=== PATIENT | female | born 1955 | race Caucasian/White ===

== ENCOUNTER → 2022-08-06 07:53 | Outpatient (CLI) | payer OTHER, SELFPAY ==
--- NOTE | 2022-08-06 | DI.US.S_ITS ---
PROCEDURE: US ABDOMEN LIMITED INDICATIONS: Right upper quadrant pain TECHNIQUE: Real-time focused scanning was performed of the abdomen, with image documentation. COMPARISON: None. FINDINGS: Normal size and appearance of the liver. Gallbladder is normally distended with wall thickening, pericholecystic fluid, sludge, or gallstone. Nondilated intrahepatic and extrahepatic biliary ducts. Normal pancreas. IMPRESSION: Normal right upper quadrant abdominal ultrasound. Dictated by: Jairo Thomas M.D. on 08/06/2022 at 10:42 Approved by: Jairo Thomas M.D. on 08/06/2022 at 10:43
== END ==
PROVIDERS: PCP Physician Assistant; Referring Provider Physician Assistant; Visit Provider Physician Assistant
DX: R10.11 Right upper quadrant pain (principal)
CPT/HCPCS: 76705

== ENCOUNTER → 2022-08-26 10:40 | Outpatient (CLI) | payer OTHER, SELFPAY ==
[2022-08-26 15:23] LABS: COVID19 -Nasal RAPID Negative (Negative)
--- NOTE | 2022-08-27 18:00 | DI.NM.S_ITS ---
DATE OF SERVICE: 08/26/2022 PROCEDURE PERFORMED: Pharmacologic vasodilator stress and rest myocardial perfusion imaging with gating to assess ejection fraction and regional wall motion. ORDERING PROVIDER: Dr. Misty Haddad. INDICATIONS: The patient is a 67-year-old female with back and epigastric discomfort and a left bundle branch block. CARDIAC STRESS: Per protocol, 0.4 mg of regadenoson was infused with a normal hemodynamic response. She had no chest discomfort or other anginal symptom. Her resting ECG shows sinus rhythm with a LBBB. With stress, there are no significant ST-segment shifts or arrhythmias. Per protocol, 26.9 millicuries of technetium-99m Myoview was injected and she was imaged 15 minutes later using a gated SPECT acquisition protocol. The day prior, she had been injected with 25.8 millicuries of technetium-99m Myoview while at rest and was imaged 20 minutes later, again using a gated SPECT acquisition protocol. FINDINGS: 1. Raw data: There is fair myocardial tracer uptake with moderate breast shadows noted. There is some bowel activity adjacent to the inferolateral wall on both the stress and the resting images. The lung/heart ratio is normal at 0.25 with a normal TID ratio of 0.84. 2. Quantitated gated SPECT: Post-stress ejection fraction is estimated at 83% without any focal wall motion abnormality. Specifically, the anterior and septal regions have normal contractility. The resting ejection fraction is 67% with a normal resting end-diastolic volume of 78 mL. 3. Myocardial perfusion imaging: Post-stress supine images shows a fairly normal myocardial tracer pattern of tracer activity except a mild defect in the mid to distal anterior septum in a pattern that is often seen with LBBB. This defect improves, although does not completely resolve, on the prone images. The resting images show an identical perfusion pattern without any obvious improvement. IMPRESSION: 1. Probable normal myocardial perfusion study. 2. Mild, fixed mid to distal anteroseptal defect that improves, but does not completely resolve, with prone imaging. This pattern is often seen with a left bundle branch block conduction defect. While a previous nontransmural infarction cannot be entirely excluded, the absence of any wall motion abnormality mitigates against this. There is no evidence for any myocardial ischemia 3. Normal left ventricular systolic function without any focal wall motion abnormality. 4. No angina or ECG evidence of ischemia with pharmacologic vasodilator stress, although the latter has limited sensitivity because of the presence of left bundle branch block. Xiomara Carreno - [facility]/[place]/nikolas doc#: [id number]/job#: [id number] dd: 08/27/2022 17:11:00 dt: 08/27/2022 17:34:00 DICTATING MD/COPIES TO: Charan Nicholas MD COPIES MNE: NILO;
== END ==
PROVIDERS: PCP Physician Assistant; Referring Provider Nurse Practitioner Family; Visit Provider Physician Assistant
DX: R07.9 Chest pain, unspecified (principal); I44.7 Left bundle-branch block, unspecified; R10.13 Epigastric pain; M54.9 Dorsalgia, unspecified; Z20.822 Contact with and (suspected) exposure to COVID-19
CPT/HCPCS: 78452; 87635; 93017; A9502; J2785